=== PATIENT | male | born 1985 | race Caucasian/White ===

== ENCOUNTER 2023-08-28 09:09 | Emergency (ER) | payer OTHER, SELFPAY ==
[2023-08-28 09:16] VITALS: BP 120/77; PULSE 58; RESP 18; TEMP 37.2; O2SAT 100; BMI 29.2
[2023-08-28 10:04] LABS: Influenza A PCR NEGATIVE (Negative); Influenza B PCR NEGATIVE (Negative); Resp Syncy Virus RNA Qual PCR NEGATIVE (Negative); SARS COV2 PCR INHOUSE NEGATIVE (Negative)
--- NOTE | 2023-08-28 11:41 | ED_ITS ---
HPI - URI/Sore Throat General Chief Complaint: Upper Respiratory Symptoms Stated Complaint: Hearing loss/pain both ears Time Seen by Provider: 08/28/23 10:52 Source: patient and RN notes reviewed Mode of arrival: ambulatory Limitations: no limitations History of Present Illness HPI Narrative: This is a 38-year-old male, with a history of PTSD with panic disorder, who presents emergency department with complaints of cough, congestion, and bilateral ear pain x5 days. Patient states that his symptoms started off as congestion and a cough. He states that over the last 2 days he has developed ear pain. Reporting the pain as dull, not sharp. He states that he has a history of ear infections in the past. He denies any fevers, chills, chest pain, shortness on breath, abdominal pain, nausea, vomiting or diarrhea. He has been taking Mucinex and DayQuil without any relief. His children are sick at home with similar symptoms. No other complaints or concerns at this time. MD elicited complaint: cough and nasal congestion Consistency: intermittent Severity: mild Able to tolerate fluids by mouth: Yes Exacerbating factors: nothing Relieving factors: nothing Context: sick contacts Associated symptoms: cough Treatments prior to arrival: none Related Data Previous Rx's Medication Instructions Recorded azithromycin 250 mg tablet See Rx Instructions PO .COMPLEX #6 08/28/23 tabs Allergies Allergy/AdvReac Type Severity Reaction Status Date / Time No Known Allergies Allergy Verified 08/28/23 09:15 Review of Systems Review of Systems: Yes all other systems are reviewed and are negative Constitutional: Constitutional: Reports as per [facility] Social History Social History Advance Directives: No Physical Exam Vital Signs: Vital Signs: Last Vital Signs Temp 98.9 F 08/28/23 09:16 Pulse 58 08/28/23 09:16 Resp 18 08/28/23 09:16 BP 120/77 08/28/23 09:16 Pulse Ox 100 08/28/23 09:16 O2 Del Method Room Air 08/28/23 09:16 BMI result Body Mass Index 29.2 Const: General: cooperative, comfortable and no acute distress Orientation/consciousness: patient oriented x3 Limitations: no limitations HEENT: Other: TMs are dull, mildly erythematous, left greater than right, no canal edema or erythema. Head: Yes normal to inspection, Yes normocephalic and Yes atraumatic Ears: hearing grossly normal bilaterally General nose exam: Normal external nose present Face and sinus: Yes normal facial exam Mouth: Normal oral and palatal mucosa present, oropharynx normal and moist mucous membranes Throat: Yes posterior oropharynx normal Eyes: General: appearance normal, both eyes and all related structures Eyelids: Yes eyelids normal Conjunctivae: conjunctivae normal Sclerae: sclerae normal Pupils: Equal, round and reactive pupils present EOM: EOMs intact bilaterally Neck: Neck: Yes normal visual inspection, Yes full ROM and Yes no lymphadenopathy Lymphatic: no lymphadenopathy noted Chest: Chest palpation & inspection: normal inspection of the chest Resp: Effort & Inspection: normal respiratory effort and able to speak in comp lete sentences Auscultation: clear to auscultation bilaterally, no crackles, no rales, no rhonchi and no wheezes Cardio: Rate: regular rate Rhythm: regular rhythm Heart sounds: S1 normal heart sound present and S2 normal heart sound present GI: Inspection: Yes normal to inspection Skin: General skin exam: no rashes or lesions noted Trauma: no lacerations or abrasions Wounds: no wounds Neuro: General: patient oriented x3 and moves all extremities Cranial nerves: Yes Equal, round and reactive pupils present Extrem: General: Yes normal to inspection Right upper extremity: normal to inspection Left upper extremity: normal to inspection Right lower extremity: normal to inspection Left lower extremity: normal to inspection Medical Decision Making Medical Decision Making [facility] Narrative: This is a 38-year-old male, with a history of PTSD and panic disorder, presenting to the emergency department for evaluation of cough, congestion, bilateral ear pain. On arrival, vital signs within normal limits. Patient is speaking in full sentences under no acute distress. Bilateral TMs are mildly erythematous, dull. Differential diagnoses include bronchitis, URI, viral syndrome, RSV, COVID, flu, otitis media, otitis externa. Patient tested negative for COVID, flu, RSV. His symptoms are likely attributed to a virus however given TMs are mildly erythematous, will treat as a with the start otitis media, treating with azithromycin. Encouraged to still take Mucinex as directed to drink plenty fluids get plenty of rest. Given return precautions he understands agrees with plan. Patient stable for discharge. Differential Diagnosis Differential Diagnoses: The differential diagnosis associated with the presentation includes See above Lab Data [facility] Lab Attestation statement: I reviewed the patient's lab results. Negative influenza, RSV, COVID Labs: Lab Results 08/28/23 Range/Units 09:22 Influenza Type A (PCR) NEGATIVE (Negative) Influenza Type B (PCR) NEGATIVE (Negative) RSV RNA Qual (PCR) NEGATIVE (Negative) SARS-CoV-2 RNA (RT-PCR) NEGATIVE (Negative) Discharge Plan Discharge Clinical Impression: Upper respiratory infection Patient Disposition: Home, Self-Care Instructions: Upper Respiratory Infection (ED) Additional Instructions: Your seen in the emergency department due to cough, congestion and ear pain. You tested negative for COVID, RSV, and flu. You likely have a virus which is causing you to have your symptoms, however your ears are starting to develop slight redness which could be the start of ear infection, therefore I am treating you with an antibiotic. Please take full course even if you are feeling better. I want you to continue taking ibuprofen or Tylenol as needed for pain. Also Mucinex will help loosen congestion in your chest. If any new or worsening symptoms occur including but not limited to fevers, chills, chest pain, shortness of breath, please return for re-evaluation. Prescriptions: New azithromycin 250 mg tablet See Rx Instructions .ROUTE .COMPLEX Qty: 6 0RF Rx Instructions: For 250 mg dose pack: take 500 mg today (day 1), then 250 mg for 4 days (days 2-5)
[2023-08-28 12:20] VITALS: BP 114/71; PULSE 55; RESP 16; TEMP 36.6; O2SAT 100
[2023-08-28 12:27] VITALS: BP 112/72; PULSE 55; RESP 16; TEMP 36.6; O2SAT 100
== END 2023-08-28 12:26 | disposition home or self-care (01) ==
PROVIDERS: Emergency Provider Emergency Medicine; PCP Internal Medicine
DX: J06.9 Acute upper respiratory infection, unspecified (principal); Z11.52 Encounter for screening for COVID-19; Z20.822 Contact with and (suspected) exposure to COVID-19
CPT/HCPCS: 0241U; 99283; 99284